=== PATIENT | female | born 1930 | race Caucasian/White ===

== ENCOUNTER 2016-09-28 23:58 | Inpatient (IN) | payer MEDICARE, BC ==
--- NOTE | ~2016-09-28 | CN ---
Consultation Report [facility] [address] [place]. [address] NAME: CONCEPCION GOLDEN : 28 STATUS : ADM Kenna PAT#: [id number] AGE: 85 ADM/REG DATE : 09/29/16 MR#: [id number] REPORT SERV DATE: 09/29/16 DICTATED BY: BHUPENDRA MENEZES DATE: 09/29/16 REPORT STATUS : Draft TRANSCRIBED BY: MODL DATE: 09/29/16 CARDIOLOGY CONSULTATION DATE OF CONSULTATION: INDICATIONS: Chest pain. HISTORY OF PRESENT ILLNESS: Concepcion Golden is an 85-year-old female, who lives at [facility]. She began to complain of chest discomfort yesterday. She was brought to the emergency room, found to have blood pressure of 184 systolic, oxygen saturation of 93% on room air. The patient was admitted to Dr. Pitts's service and Cardiology consulted. The patient states the chest pain was a pressure sensation, left chest. She is unclear as to whether radiated to the arm, to the back of the neck, or there was any associated shortness of breath or lightheadedness. She is fairly easily somnolent. PAST MEDICAL HISTORY: Hypercholesterolemia, coronary artery disease with previous bare metal stent to the LAD and circumflex, chronic back pain, hypertension, history of pulmonary embolism, history of edema. Recent echocardiogram on 09/10/2016 demonstrates normal LV systolic function and mild aortic valve calcification without aortic stenosis. HOME MEDICATIONS: Listed in [facility] home medicine form and reviewed. ALLERGIES: CLARITHROMYCIN AND ADHESIVE TAPE. SOCIAL HISTORY: Never smoker. FAMILY HISTORY: Reviewed and noncontributory. REVIEW OF SYSTEMS: As per the HPI. Otherwise, all other review of systems negative. PHYSICAL EXAMINATION: VITAL SIGNS: Blood pressure is 184/71, pulse 101, respiratory rate is 18. GENERAL: Appears stated age, no distress. EYES: Sclerae anicteric, no arcus senilis. MOUTH: Oral mucosa moist, lips acyanotic. NECK: Jugular venous pressure normal, no carotid bruits. LUNGS: Clear to auscultation bilaterally, normal inspiratory effort. CARDIAC: Regular rate and rhythm, no murmurs, gallops or rubs. ABDOMEN: Soft, nondistended, nontender. EXTREMITIES: Bilateral erythema and mild edema. SKIN: Warm and dry. Consultation Report [place] [id number] [place]. [address] NAME: CONCEPCION GOLDEN : 28 STATUS : ADM Kenna PAT#: [id number] AGE: 85 ADM/REG DATE : 09/29/16 MR#: [id number] REPORT SERV DATE: 09/29/16 DICTATED BY: BHUPENDRA MENEZES DATE: 09/29/16 REPORT STATUS : Draft TRANSCRIBED BY: MODL DATE: 09/29/16 NEURO/PSYCH: Alert and oriented, nonfocal, mood appropriate. Arousable, but easily somnolent. DATA: Sodium 137, potassium 3.8, creatinine 1.01. Hemoglobin is 10.1. Troponin is negative. INR 1.9. ELECTROCARDIOGRAM: Sinus rhythm with atrial premature contractions. No acute ischemic changes. Chest x-ray is no acute cardiopulmonary process. IMPRESSION: 1. Chest pain. 2. Hypertension. 3. Coronary artery disease, previous PCI. 4. History of pulmonary embolism. RECOMMENDATIONS: Repeat troponin. Control blood pressure. Vasodilators stress test in a.m. MYRANDA/NICOLE Bhupendra Menezes M.D. / [id number] CC: Festus Zamora
--- NOTE | ~2016-09-28 | HP ---
History And Physical [place] [place] [id number] [facility] [place]. [address] NAME: SUKI POWELL : 28 STATUS : ADM Kenna PAT#: [id number] AGE: 85 ADM/REG DATE : 09/29/16 MR#: [id number] REPORT SERV DATE: 09/29/16 DICTATED BY: HEIDY VASQUEZ DATE: 09/29/16 REPORT STATUS : Draft TRANSCRIBED BY: MODL DATE: 09/29/16 DATE OF ADMISSION: 09/29/2016 CHIEF COMPLAINT: Chest pain and headache. HISTORY OF PRESENT ILLNESS: The patient is an 85-year-old elderly female, who is a resident of [facility], transferred to [facility] ER early this morning for complaint of chest pain and headache. The patient denies associated nausea, vomiting, or diaphoresis with chest pain. The patient reports headache was prior to chest pain. The patient reports both chest pain and headache was improve with sublingual nitroglycerin given in the ER. The patient denies any other associated symptoms with headache such as blurred vision, any weakness, slurred speech. ALLERGIES: 1. CLARITHROMYCIN, UNKNOWN CAUSE. 2. ADHESIVE, UNSURE REACTION. 3. BIAXIN. CODE STATUS: Full code. MEDICATIONS: Home medications to include 1. Tylenol 500 mg q.6 hours p.r.n. for pain or fever. 2. Lipitor 10 mg p.o. every evening. 3. Calmoseptine ointment apply with nystatin powder to inner thighs twice a day. 4. Vitamin D 50,000 units one cap p.o. weekly, takes once a week on Friday. 5. Ferrous sulfate 325 mg p.o. daily. 6. Prozac 10 mg p.o. daily. 7. Folic acid 1 mg p.o. daily. 8. Levothyroxine 100 mcg p.o. daily. 9. Losartan 100 mg p.o. daily. 10.Namenda XR 28 mg p.o. daily. 11.Bactroban ointment 1 g ointment five days, that to begin on 10/03/2016. 12.Nitroglycerin 0.4 mg sublingual q.5 minutes to a max of 3 p.r.n. for chest pain. 13.Nystatin topical powder mixed with Calmoseptine apply to thigh twice a day. 14.Zofran 8 mg p.o. at bedtime, take prior to meals and at bedtime. 15.Potassium chloride 10 mEq p.o. twice a day. 16.Prednisone 2.5 mg p.o. daily. 17.Zantac 150 mg p.o. twice a day. 18.Torsemide 20 mg p.o. twice a day. 19.Hibiclens daily bath/shower wash from neck to toes. 20.Warfarin 4 mg every evening and extra 0.5 mg on Friday, , Friday, and Friday. PAST MEDICAL HISTORY: 1. Coronary artery disease with stent in 2001. The patient is followed by Dr. Briggs at [facility] [address] [address] NAME: SUKI POWELL : 28 STATUS : ADM Kenna PAT#: [id number] AGE: 85 ADM/REG DATE : 09/29/16 MR#: [id number] REPORT SERV DATE: 09/29/16 DICTATED BY: HEIDY VASQUEZ DATE: 09/29/16 REPORT STATUS : Draft TRANSCRIBED BY: NICOLE DATE: 09/29/16 [facility]. 2. History of chronic low back pain. 3. History of osteoarthritis. 4. Hypertension, essential. 5. History of pulmonary embolism, on warfarin. 6. History of chronic lower extremity edema/pedal edema. 7. Hypercholesteremia. 8. GERD. 9. Mood disorder. 10.Anemia of chronic disease. 11.History of incontinence of urine. 12.History of remote CVA. 13.Debility, wheelchair bound. 14.Hard of hearing. PAST SURGICAL HISTORY: 1. Bilateral cataract surgery. 2. Left breast mastectomy approximately 40 years ago from breast cancer treated with radiation therapy. 3. PTCA/stent, 09/11/2001. SOCIAL HISTORY: The patient is a resident of [facility] for approximately four years. She is with two children, both boys. She has two grandson and three great grandson. She denies any history of tobacco, alcohol, or illicit drug use. REVIEW OF SYSTEMS: The patient reports she uses reading glasses. She reports she is hard of hearing bilaterally ears. She denies any complaint of swallowing problems. She denies any complaint of chest pain or shortness of breath at this time. She denies any complaint of nausea or vomiting. She denies any complaint of constipation. She reports she often have a bowel movement after every meals, but it is not diarrhea. The patient reports she is incontinence of urine. She reports she has history of stroke. No history of diabetes. The patient is not aware of having history of thyroid problem. The patient reports occasionally she has small nosebleed when she blows her nose. Otherwise, no issue with bleeding. The patient reports she has chronic leg swelling over a year now; however, she reports that her redness of her leg as worse in the last few days, but she denies any fever or chills associated with this. The patient would like to address her code status. The patient denies any history of diabetes. PHYSICAL EXAMINATION: VITAL SIGNS: Temp of 98.0, pulse of 101, respiratory rate 19, BP of 184/71. GENERAL: The patient is a pleasant elderly female, in no acute distress noted. She is oriented to her name and situation. She cannot name hospital, but able to name current president as well as her current living situation. HEENT: Oral mucosa moist. Eyes: PERRL with full range of motion and extraocular movement intact, bilaterally nonicteric. NECK: No JVD. No pain on palpation. History And Physical [address] [address] NAME: SUKI POWELL : 28 STATUS : ADM Kenna PAT#: [id number] AGE: 85 ADM/REG DATE : 09/29/16 MR#: [id number] REPORT SERV DATE: 09/29/16 DICTATED BY: HEIDY VASQUEZ DATE: 09/29/16 REPORT STATUS : Draft TRANSCRIBED BY: MODYuliya DATE: 09/29/16 CHEST: No chest deformity except for status post left mastectomy. LUNGS: Clear to auscultation bilaterally. No wheezing or rhonchi. Symmetrical expansion. CV: Regular rate and rhythm. Normal S1, S2. No murmurs noted. ABDOMEN: Round, but soft, nontender to palpate throughout. Bowel sounds x4 quadrants. : The patient uses adult diaper. EXTREMITIES: Bilateral upper extremity without edema and generalized arthritic changes in bilateral upper and lower extremity. Legal Administrator bilaterally equal with 4/5 strength. Bilateral lower extremity with 2+ edema with chronic skin changes due to edema noted. Three small superficial purulent like wound to the left lower anterior leg. Positive erythema bilaterally with warm to touch bilaterally. The patient with minimal range of motion. Able to move all toes with no pain but generalized weakness especially in lower extremities. Peripheral IV noted in the right antecubital space without redness or edema. LABORATORY STUDY: Troponin on 09/29/2016 at 0210 hours is less than 0.02. Sodium 137, potassium 3.8, chloride 101, CO2 of 30, BUN 15, creatinine 1.01, GFR of 50, glucose of 100. Mag 2.2. AST 19, bili 0.3, total protein 6.7, ALT 14, albumin 3.1, ALP 114, lipase 113. WBC 10.7, hemoglobin 10.1, hematocrit 31.2. INR 1.9, PT 21.7, PTT 40.3. Platelet of 357. Chest x-ray done on 09/29/2016, no acute cardiopulmonary disease, stable moderate size hiatal hernia and global osteopenia. Head CT scan without contrast on 09/29/2016, no acute intracranial abnormality. Stable moderately severe periventricular and subcortical chronic ischemic white matter demyelination with extension to the centrum semiovale. ASSESSMENT: 1. Chest pain. 2. Right temporal headache. 3. Bilateral lower leg cellulitis with chronic bilateral lower leg edema. 4. Hypertension primary, uncontrolled. 5. Chronic anticoagulation therapy secondary to history of pulmonary embolism. 6. Chronic lower extremity edema. 7. Hypercholesteremia. 8. History of coronary artery disease, status post percutaneous transluminal coronary angioplasty in 2001. 9. Gastroesophageal reflux disease. 10.History of mood disorder. 11.Anemia secondary to chronic disease. 12.History of chronic debility. 13.Hypothyroidism. 14.Urine incontinence. PLAN: 1. Appreciate Cardiology consult. The patient was seen by Dr. Menezes this morning. See consult note. Added Norvasc to home regimen for better blood pressure control, but with instruction to hold for pending vasodilator MPI in a.m. Troponin negative so far, pending repeat troponin this morning per Dr. Menezes. The patient currently without complaint of chest pain. Continue p.r.n. nitroglycerin for any complaint of chest History And Physical [address] [address] NAME: SUKI POWELL : 28 STATUS : ADM Kenna PAT#: [id number] AGE: 85 ADM/REG DATE : 09/29/16 MR#: [id number] REPORT SERV DATE: 09/29/16 DICTATED BY: HEIDY VASQUEZ DATE: 09/29/16 REPORT STATUS : Draft TRANSCRIBED BY: NICOLE DATE: 09/29/16 pain. The patient is at risk for acute myocardial infarction. 2. Headache likely secondary to hypertension, need to control hypertension, losartan and Norvasc resumed by Dr. Menezes this morning. Hydralazine 25 to 50 mg p.o. every 6 hours p.r.n. for systolic BP greater than [address] Menezes. Continue to monitor blood pressure. The patient is at risk for CVA. 3. The patient with chronic lower extremity edema. Continue Demadex and elevate bilateral lower extremity. The patient was started on Unasyn IV for cellulitis of bilateral legs. Admission WBC is 10.7. The patient is afebrile. If patient responds well to this, we will convert to p.o. regimen, so continue antibiotic once back to [facility]. The patient is at risk for sepsis. The patient chest x-ray and CT scan of the brain on 09/29/2016 both where negative for any acute process. 4. The patient with history of pulmonary embolism on chronic anticoagulation. We will continue current Coumadin regimen. Admission INR is 1.9. We will monitor INR closely. The patient is at risk for recurrent pulmonary embolism or stroke. 5. The patient is incontinence of urine. Continue to monitor output. Continue adult diaper use. The patient is at risk for UTI. 6. The patient with history of hypothyroidism. Continue replacement. Continue other home med regimen, reconciliated medications at this time. Address code status with the patient. However, the patient preferred this to be addressed by . We will plan to call her by phone and ensure this is addressed, and we will ensure in-house POLST form completed and filed. Discussed plan of care with nurse. We will need to bladder scan patient if requires straight cath. For now, we will hold off placing any Holguin. The patient is at high risk for UTI. 7. The patient currently on observation status. If vasodilator stress test in a.m. is negative and Cardiology clears patient to return to [facility], we will plan to return the patient to [facility] with p.o. antibiotic regimen and continue home med regimen. DICTATED BY: Fatmata Loya NP CLP/MODL Heidy Vasquez M.D. / [id number] CC: Festus Zamora Amanda Suzanne
[~2016-09-28 23:58] MED LIST: ACET500CAP PO; AMB10 PO; ANTI-DIARRHEAL; ASA5GR PO; ASAB PO; ASABAYER PO; ASAEC PO; ATV.5 PO; ATV1 PO; BENICAR40 PO; BERBERINE PO; BION TEARS; CALMOSEPTINE EX; CALTRA600D PO; CARD30 PO; CARDU2 PO; CELEXA10 PO; CELEXA20 PO; CHLORASEPTIC1.4 % MT; COZAAR100 MG PO; CRESTOR20 MG PO; CYANO1000T PO; DEMA20 PO; DSS PO; DUONEB INH; EYE DROP TEARS15 ML OP; EYE VITAMIN PO; FERROUS SULFATE PO; FOLIC PO; GANIDIN NR100 MG/5 M PO; HEMOCYTE324 MG PO; HYDROCHLOROT12.5 MG PO; JANTOVEN1 MG PO; JANTOVEN5 MG PO; K-TABS10 MEQ PO; KLOR-CON 1010 MEQ PO; L10 PO; L20 PO; L40 PO; LEVAQUIN5T PO; LEVOTHROID75 MCG PO; LEVOTHYROXIN100 MCG PO; LEVOTHYROXIN75 MCG PO; LIPITOR10 PO; LIQUITEARS; LISINOPRIL40 MG PO; LOP25 PO; MAGOX4 PO; MAPAP PO; MILK OF MAG; MIRALAXPKT PO; MTX2.5 PO; MUCINEX1200 MG PO; MUCINEX600 MG PO; NAMENDA10 MG PO; NAMENXR28 PO; NATURA2 OP; NEXIUM20 M1 PO; NEXIUM40 PO; NIASPAN500 PO; NITROSTAT0.4 MG SL; NORCO1 TA1 PO; NORV5 PO; NTG150 SL; OXECTA5 MG PO; P1 PO; P10 PO; P20 PO; P5 PO; POTASSIUM ER PO; PR25 PO; PREDNISONE2.5 MG PO; PREGNENOLONE PO; PROAIR HFA INH; PROBIOTIC PO; PROTONIX PO; SENTAB PO; SEROQUEL XR50 MG PO; SEROQUEL1C PO; SEROQUEL50 MG PO; STOOL SOFTEN240 MG PO; SYN075 PO; SYN88 PO; T PO; ULTRAM50 PO; VISINE-A EYE AL15 ML OPH; VITC500 PO; VITD PO; ZANTAC150 MG PO; ZETIA PO; ZOFRAN4 PO; ZOFRAN8 PO; [UNRECOGNIZED DRUG - OTHER]; [UNRECOGNIZED DRUG - OTHER] PO; [UNRECOGNIZED DRUG - OTHER] PO
[2016-09-29 02:37] LABS: BASOPHILS 0.6 %; BASOPHILS ABSOLUTE 0.06 10/3/uL (0.0-0.16); EOSINOPHILS 9.3 %; ER CBC TAT 0 Hrs 03 Mins; HEMATOCRIT 31.2 % (36.0-48.0); HEMOGLOBIN 10.1 g/dL (12.0-16.0); IMMATURE GRANULOCYTES 0.3 %; LYMPHOCYTES 29.1 %; LYMPHOCYTES ABSOLUTE 3.12 10/3/uL (0.67-4.30); MEAN CORPUS HGB CONC 32.4 g/dL (32.0-36.0); MEAN CORPUSCULAR HEMOGLOB 30.1 pg (26.0-34.0); MEAN CORPUSCULAR VOLUME 92.9 fL (80-100); MONOCYTES 16.9 %; MONOCYTES ABSOLUTE 1.81 10/3/uL (0.21-1.20); NEUTROPHILS 43.8 %; NEUTROPHILS ABSOLUTE 4.72 10/3/uL (2.02-8.40); PLATELET COUNT 359 10/3/uL (150-400); RBC DISTRIBUTION WIDTH 14.8 % (12.0-16.0); RED CELL COUNT 3.36 10/6/uL (4.0-5.6); WHITE BLOOD CELLS 10.7 10/3/uL (4.5-10.5)
[2016-09-29 02:38] LABS: IMMATURE GRANULOCYTES ABSOLUTE 0.03 10/3/uL (0.0-0.11); MANUAL DIFF NO %
[2016-09-29 02:46] LABS: INTERNATIONAL NORMAL RATI 1.9 UNITS (-)
[2016-09-29 02:47] LABS: PARTIAL THROMBO TIME 40.3 SEC (22.5-37.2)
[2016-09-29 02:49] LABS: PROTIME (NOT ORD) 21.7 SEC (12.0-14.5)
[2016-09-29 02:56] LABS: ALBUMIN 3.1 G/DL (3.5-5.0); ALKALINE PHOSPHATASE 114 U/L (45-117); BUN (BLOOD UREA NITROGEN) 15 MG/DL (6-23); CALCIUM, SERUM 8.7 MG/DL (8.5-10.4); CHEST PAIN PROFILE TAT 0 Hrs 22 Mins; CHLORIDE, SERUM 101 MMOL/L (96-112); CO2 (CARBON DIOXIDE) 30 MMOL/L (24-34); CREATININE 1.01 MG/DL (0.55-1.02); GFR AFRICAN AMERICAN 58 ML/MIN (>=60); GFR NON AFRICAN AMERICAN 50 ML/MIN (>=60); GLUCOSE, SERUM 100 MG/DL (60-99); POTASSIUM, SERUM 3.8 MMOL/L (3.5-5.3); SGOT(AST) 19 U/L (5-40); SGPT(ALT) 14 U/L (5-65); SODIUM, SERUM 137 MMOL/L (135-148); TOTAL BILIRUBIN 0.3 MG/DL (0-1.2); TOTAL PROTEIN 6.7 G/DL (6.0-8.5); TROPONIN I <0.02 NG/ML (<0.05)
[2016-09-29 03:01] LABS: DIRECT BILIRUBIN < 0.1 MG/DL (0.0-0.4); INDIRECT BILIRUBIN(NOT ORDER) 0.2 MG/DL (0.1-0.9)
[2016-09-29 03:05] LABS: BAND NEUTROPHILS 1 %; BASOPHILS 2 %; BASOPHILS ABSOLUTE (CALC) 0.21 10/3/uL (0.0-0.16); EOSINOPHILS 8 %; EOSINOPHILS ABSOLUTE (CALC) 0.86 10/3/uL (0.0-0.53); ER DIFF TAT 0 Hrs 31 Mins; IMMATURE GRANS ABSOLUTE (CALC) 0.43 10/3/uL (0.0-0.11); LYMPHOCYTES 29 %; METAMYELOCYTES 4 %; MONOCYTES 9 %; MONOCYTES ABSOLUTE (CALC) 0.96 10/3/uL (0.21-1.20); NEUTROPHILS ABSOLUTE (CALC) 5.14 10/3/uL (2.02-8.40); PLATELET ESTIMATE ADQ (ADEQUATE); SEGMENTED NEUTROPHIL (0) 47 %; TOTAL NUCLEATED CELLS 100
[2016-09-29 03:06] LABS: RBC MORPHOLOGY NORM (NORMAL)
[2016-09-29 03:11] LABS: PROCALCITONIN <0.05 ng/mL (<0.5)
[2016-09-29] MEDS ORDERED: LEVOTHYROXIN100 MCG PO (03:59)
[2016-09-29] MEDS ORDERED: PROZ10 PO (03:59)
[2016-09-29] MEDS ORDERED: VITD PO (04:01)
[2016-09-29] MEDS ORDERED: FOLIC PO (04:01)
[2016-09-29] MEDS ORDERED: NORV5 PO (04:02)
[2016-09-29] MEDS ORDERED: FERROUS SULF325 M1 PO (04:02)
[2016-09-29] MEDS ORDERED: COZAAR100 MG PO (04:03)
[2016-09-29] MEDS ORDERED: NAMENXR28 PO (04:03)
[2016-09-29] MEDS ORDERED: PREDNISONE2.5 MG PO (04:04)
[2016-09-29] MEDS ORDERED: CALMOSEPTINE (04:05)
[2016-09-29] MEDS ORDERED: NYSTATPOW TOP (04:06)
[2016-09-29] MEDS ORDERED: ZANTAC 150 PO (04:07)
[2016-09-29] MEDS ORDERED: KLOR-CON 1010 MEQ PO (04:07)
[2016-09-29] MEDS ORDERED: DEMA20 PO (04:08)
[2016-09-29] MEDS ORDERED: L40 PO (04:09)
[2016-09-29] MEDS ORDERED: ZOFRAN8 PO (04:10)
[2016-09-29] MEDS ORDERED: COUMADIN4 MG PO (04:11)
[2016-09-29] MEDS ORDERED: C1 PO (04:12)
[2016-09-29] MEDS ORDERED: LIPITOR10 PO (04:12)
[2016-09-29] MEDS ORDERED: NITROSTAT0.4 MG SL (04:14)
[2016-09-29] MEDS ORDERED: ACET500CAP PO (04:14)
[2016-09-29] MEDS ORDERED: IMMODIUM (04:17)
[2016-09-29] MEDS ORDERED: BACTRONASA NAS (04:18)
[2016-09-29] MEDS ORDERED: CHLORHEXIDINE (04:19)
[2016-09-30 05:41] LABS: INTERNATIONAL NORMAL RATI 1.8 UNITS (-); PROTIME (NOT ORD) 20.7 SEC (12.0-14.5)
[2016-10-01 04:30] LABS: INTERNATIONAL NORMAL RATI 1.7 UNITS (-); PROTIME (NOT ORD) 19.9 SEC (12.0-14.5)
[2016-10-01 04:31] LABS: CHLORIDE, SERUM 101 MMOL/L (96-112); CO2 (CARBON DIOXIDE) 28 MMOL/L (24-34); CREATININE 0.94 MG/DL (0.55-1.02); GFR AFRICAN AMERICAN 64 ML/MIN (>=60); GFR NON AFRICAN AMERICAN 55 ML/MIN (>=60); GLUCOSE, SERUM 100 MG/DL (60-99); POTASSIUM, SERUM 3.7 MMOL/L (3.5-5.3); SODIUM, SERUM 138 MMOL/L (135-148)
[2016-10-01 04:32] LABS: BUN (BLOOD UREA NITROGEN) 19 MG/DL (6-23)
[2016-10-02 04:29] LABS: BASOPHILS 0.6 %; BASOPHILS ABSOLUTE 0.05 10/3/uL (0.0-0.16); EOSINOPHILS 10.5 %; EOSINOPHILS ABSOLUTE 0.86 10/3/uL (0.0-0.53); HEMOGLOBIN 11.2 g/dL (12.0-16.0); IMMATURE GRANULOCYTES 0.7 %; IMMATURE GRANULOCYTES ABSOLUTE 0.06 10/3/uL (0.0-0.11); LYMPHOCYTES 30.4 %; LYMPHOCYTES ABSOLUTE 2.49 10/3/uL (0.67-4.30); MEAN CORPUS HGB CONC 32.4 g/dL (32.0-36.0); MEAN CORPUSCULAR HEMOGLOB 29.9 pg (26.0-34.0); MEAN CORPUSCULAR VOLUME 92.5 fL (80-100); MEAN PLATELET VOLUME 9.5 fL (9.2-13.0); MONOCYTES ABSOLUTE 1.39 10/3/uL (0.21-1.20); NEUTROPHILS 40.8 %; NEUTROPHILS ABSOLUTE 3.34 10/3/uL (2.02-8.40); PLATELET COUNT 398 10/3/uL (150-400); RBC DISTRIBUTION WIDTH 14.7 % (12.0-16.0); RED CELL COUNT 3.74 10/6/uL (4.0-5.6); WHITE BLOOD CELLS 8.2 10/3/uL (4.5-10.5)
[2016-10-02 04:30] LABS: HEMATOCRIT 34.6 % (36.0-48.0); MANUAL DIFF NO %
[2016-10-02 04:37] LABS: INTERNATIONAL NORMAL RATI 1.7 UNITS (-); PROTIME (NOT ORD) 19.8 SEC (12.0-14.5)
[2016-10-02 04:41] LABS: CALCIUM, SERUM 9.1 MG/DL (8.5-10.4); CHLORIDE, SERUM 99 MMOL/L (96-112); CO2 (CARBON DIOXIDE) 30 MMOL/L (24-34); CREATININE 1.11 MG/DL (0.55-1.02); GFR AFRICAN AMERICAN 52 ML/MIN (>=60); GFR NON AFRICAN AMERICAN 45 ML/MIN (>=60); GLUCOSE, SERUM 102 MG/DL (60-99); POTASSIUM, SERUM 3.5 MMOL/L (3.5-5.3); SODIUM, SERUM 137 MMOL/L (135-148)
[2016-10-02 04:42] LABS: BUN (BLOOD UREA NITROGEN) 23 MG/DL (6-23)
[2016-10-02] MEDS ORDERED: NORV5 PO (17:10)
[2016-10-02] MEDS ORDERED: CILOXAN OT (17:12)
[2016-10-02] MEDS ORDERED: DEXAMETHASONE 0.1% OT (17:14)
[2016-10-02] MEDS ORDERED: DIOV160 PO (17:19)
[2016-10-02] MEDS ORDERED: DSS PO (17:22)
[2016-10-02] MEDS ORDERED: DURICEF PO (17:23)
[2016-10-02] MEDS ORDERED: KDUR20 PO (17:24)
[2016-10-02] MEDS ORDERED: NORCO1 TA1 PO (17:24)
[2016-10-02] MEDS ORDERED: C5 PO (17:25)
[2016-10-02] MEDS ORDERED: **MEDICINE TO STOP (17:27)
== END 2016-10-02 19:57 | disposition home health service (06) | DRG 603 ==
LOC: ER 23:58 → ER/OF 09-29 05:45 → 7NO 09-29 06:47
PROVIDERS: Family Medicine; Internal Medicine Cardiovascular Disease; Nurse Practitioner Family; Specialist
DX: L03.115 Cellulitis of right lower limb (principal); D63.8 Anemia in other chronic diseases classified elsewhere; I10 Essential (primary) hypertension; L03.116 Cellulitis of left lower limb; G89.4 Chronic pain syndrome; E78.00 Pure hypercholesterolemia, unspecified; I25.10 Atherosclerotic heart disease of native coronary artery without angina pectoris; K21.9 Gastro-esophageal reflux disease without esophagitis; F39 Unspecified mood [affective] disorder; E03.9 Hypothyroidism, unspecified; R32 Unspecified urinary incontinence; H92.01 Otalgia, right ear; Z86.711 Personal history of pulmonary embolism; Z79.01 Long term (current) use of anticoagulants; Z95.5 Presence of coronary angioplasty implant and graft; Z88.1 Allergy status to other antibiotic agents; Z91.048 Other nonmedicinal substance allergy status
CPT/HCPCS: 70450; 71010; 72170; 73502-RT; 78452; 80048; 80076; 83690; 83735; 83880; 84145; 84484; 85025; 85610; 85730; 87040; 93005; 93017; 97162-GP; 97165-GO; 99285; A9270-GY; A9502; G8978-CM-GP; G8979-CL-GP; G8987-CL-GO; G8988-CK-GO; J0690; J2405; J2785